=== PATIENT | male | born 1970 | race Caucasian/White ===

== ENCOUNTER 2025-04-23 10:30 | Emergency (ER) | payer OTHER ==
[2025-04-23 12:32] LABS: BASOPHILS ABSOLUTE AUTO 0.1 K/mm3 (0.0-0.2); BASOPHILS PERCENT AUTO 0.7 % (0.0-1.0); EOSINOPHILS ABSOLUTE AUTO 0.3 K/mm3 (0.0-0.4); EOSINOPHILS PERCENT AUTO 2.6 % (0.0-6.0); IMMATURE GRAN ABSOLUTE AUTO 0.03 K/mm3 (0.00-0.05); IMMATURE GRAN PERCENT AUTO 0.3 % (0.0-0.4); LYMPHOCYTES ABSOLUTE AUTO 1.5 K/mm3 (1.0-4.8); LYMPHOCYTES PERCENT AUTO 15.3 % (24.0-44.0); MEAN PLATELET VOLUME 9.7 fl (9.4-12.4); MONOCYTES ABSOLUTE AUTO 0.9 K/mm3 (0.0-0.8); MONOCYTES PERCENT AUTO 9.3 % (0.0-8.0); NEUTROPHILS ABSOLUTE AUTO 6.9 K/mm3 (1.8-7.7); NEUTROPHILS PERCENT AUTO 71.8 % (41.0-71.0); NRBC ABSOLUTE 0.00 (0.00-0.02); NRBC PERCENT 0.0 % (0.0-0.2); PLATELET COUNT,PLT 263 K/mm3 (150-400); RED BLOOD CELL COUNT 4.76 M/mm3 (4.52-5.90); WHITE BLOOD CELL COUNT,WBC 9.56 K/mm3 (3.9-11.3)
[2025-04-23 13:00] LABS: A/G RATIO 1.1 (1-2); ALANINE AMINOTRANSFERASE,ALT 31.0 U/L (16-63); ASPARTATE AMNIOTRANSFERASE,AST 26.0 U/L (15-37); BILIRUBIN TOTAL 0.7 mg/dL (0.2-1.0); BLOOD UREA NITROGEN,BUN 16.0 mg/dL (7-18); CARBON DIOXIDE,CO2 27.0 mEq/L (21-32); CHLORIDE,CL 103.0 mEq/L (98-107); CREATININE 0.9 mg/dL (0.7-1.3); EST CRCL DRUG DOSING (CG) 80.67 mL/min; ESTIMATED GFR 101.0 mL/min (>60); GLUCOSE RANDOM 97.0 mg/dL (70-99); POTASSIUM,K 4.3 mEq/L (3.5-5.1); PROTEIN TOTAL,TP 7.9 g/dl (6.4-8.2); SODIUM,NA 141.0 mEq/L (136-145)
[2025-04-23] MEDS ORDERED: Diatrizoate Meglumine/Diatrizoate Sodium 37% 120 ML Bottle PO ONE (13:49)
[2025-04-23] MEDS: Iopamidol 612 MG/ML 100 ML Bottle IVPUSH ONE (14:14)
[2025-04-23] MEDS: Sodium Chloride 0.9% 10 ML Syringe FLUSH ONE (14:14)
== END 2025-04-23 15:14 | disposition home or self-care (01) ==
LOC: JD.ED 10:30
DX: K42.9 Umbilical hernia without obstruction or gangrene (principal); K76.9 Liver disease, unspecified; Z79.51 Long term (current) use of inhaled steroids
CPT/HCPCS: 36415; 74177; 74177-26; 76705; 76705-26; 80053; 85025; 99283; 99284; Q9963; Q9967

== ENCOUNTER 2025-05-21 09:15 | Day surgery (SDC) | payer SELFPAY ==
[~2025-05-21 09:15] MED LIST: EPINEPHrine 1 MG/ML SDV ONE; Sodium Chloride 0.9% 10 ML Syringe FLUSH PRN; Sodium Chloride 0.9% 10 ML Syringe FLUSH SCH
[2025-05-21] MEDS ORDERED: Dexamethasone 4 MG/ML 5 ML MDV ONE (09:30)
[2025-05-21] MEDS ORDERED: Ondansetron 4 MG/2 ML SDV ONE (09:30)
[2025-05-21] MEDS ORDERED: fentaNYL 250 MCG/5 ML SDV ONE (09:30)
[2025-05-21] MEDS ORDERED: Propofol 200 MG/20 ML SDV ONE (09:30)
[2025-05-21] MEDS ORDERED: Phenylephrine 1% 10 MG/ML SDV ONE (09:30)
[2025-05-21] MEDS ORDERED: Ketamine HCL/NACL, ISO-OSM 50 MG/5 ML Syringe ONE (09:30)
[2025-05-21] MEDS ORDERED: dexmedeTOMIDine HCl 200 MCG/2 ML SDV ONE (09:30)
[2025-05-21] MEDS: Lactated Ringers 1,000 ML IV SCH (09:40)
[2025-05-21] MEDS: ePHEDrine 50 MG/ML SDV ONE (10:30)
== END 2025-05-21 12:45 | disposition home or self-care (01) ==
LOC: JD.SDS 09:15
PROVIDERS: ATTEND Surgery
DX: K42.9 Umbilical hernia without obstruction or gangrene (principal); Z87.891 Personal history of nicotine dependence; Z79.899 Other long term (current) drug therapy
CPT/HCPCS: 49591; J0169; J0665; J0690; J1100; J2371; J2405; J2704; J3010; J7120; 00752; J3490